=== PATIENT | male | born 1970 | race Caucasian/White ===

== ENCOUNTER 2016-11-29 06:50 | Day surgery (SDC) | payer OTHER ==
[2016-11-27 10:07] LABS: BASOPHILS 0.5 %; BASOPHILS ABSOLUTE 0.02 10/3/uL (0.0-0.16); EOSINOPHILS 2.8 %; EOSINOPHILS ABSOLUTE 0.12 10/3/uL (0.0-0.53); HEMATOCRIT 42.5 % (40.0-51.0); HEMOGLOBIN 14.7 g/dL (13.6-17.8); LYMPHOCYTES ABSOLUTE 1.51 10/3/uL (0.67-4.30); MEAN CORPUS HGB CONC 34.6 g/dL (32.0-36.0); MEAN CORPUSCULAR HEMOGLOB 28.8 pg (26.0-34.0); MEAN CORPUSCULAR VOLUME 83.3 fL (80-100); MEAN PLATELET VOLUME 12.9 fL (9.2-13.0); MONOCYTES 5.3 %; MONOCYTES ABSOLUTE 0.23 10/3/uL (0.21-1.20); NEUTROPHILS 56.4 %; NEUTROPHILS ABSOLUTE 2.44 10/3/uL (2.02-8.40); PLATELET COUNT 209 10/3/uL (150-400); RBC DISTRIBUTION WIDTH 12.5 % (12.0-16.0); WHITE BLOOD CELLS 4.3 10/3/uL (4.5-10.5)
[2016-11-27 10:11] LABS: MANUAL DIFF NO %
[2016-11-27 10:26] LABS: A/G RATIO 1.5 (0.7-1.9); ALBUMIN 4.6 G/DL (3.5-5.0); ALKALINE PHOSPHATASE 71 U/L (45-117); BUN (BLOOD UREA NITROGEN) 22 MG/DL (6-23); CHLORIDE, SERUM 106 MMOL/L (96-112); CO2 (CARBON DIOXIDE) 26 MMOL/L (24-34); CREATININE 0.84 MG/DL (0.70-1.30); GFR AFRICAN AMERICAN 121 ML/MIN (>=60); GFR NON AFRICAN AMERICAN 104 ML/MIN (>=60); GLOBULIN 3.1 G/DL (2.5-4.1); GLUCOSE, SERUM 95 MG/DL (60-99); SGOT(AST) 13 U/L (5-40); SGPT(ALT) 28 U/L (5-65); SODIUM, SERUM 141 MMOL/L (135-148); TOTAL BILIRUBIN 0.6 MG/DL (0-1.2); TOTAL PROTEIN 7.7 G/DL (6.0-8.5)
--- NOTE | ~2016-11-29 | PREOPHP ---
PreOp History and Physical [id number] [place]. [address] NAME: ZAY ROMERO : 68 STATUS : PRE [facility] PAT#: [id number] AGE: 46 ADM/REG DATE : MR#: [id number] REPORT SERV DATE: 11/28/16 DICTATED BY: GENESIS JIMENEZ III DATE: 11/21/16 REPORT STATUS : Draft TRANSCRIBED BY: JERRY DATE: 11/21/16 HISTORY OF PRESENT ILLNESS: This 46-year-old male comes to the operating room for repair of a symptomatic umbilical hernia. The patient noticed a "pop" in his abdomen at the navel area about two weeks ago. This was during a workout. The patient has umbilical hernia, which is symptomatic in terms of local pain and discomfort. The patient comes to the operating room now for an open repair of umbilical hernia. The patient had no nausea, vomiting, or obstructive symptoms. PAST MEDICAL HISTORY: Unremarkable. MEDICATIONS: None regularly. FAMILY HISTORY: Unremarkable. SOCIAL HISTORY: No history of tobacco use. The patient does have occasional history of alcohol use. ALLERGIES: NONE. REVIEW OF SYSTEMS: The patient's 14-point review of systems is otherwise unremarkable. PHYSICAL EXAMINATION: GENERAL: This is an obese male, in no acute distress. He is alert and oriented x3. VITAL SIGNS: Blood pressure 127/74, pulse 58, temperature 97.7. HEENT: Unremarkable. Cranial nerves II through XII were normal. LUNGS: Clear. CARDIAC: Normal. ABDOMEN: Soft and nontender. The patient has a small umbilical hernia which is reducible. EXTREMITIES: Normal. ASSESSMENT: A 46-year-old male with symptomatic umbilical hernia. PLAN: The patient comes to the operating room now for open repair of this umbilical hernia. This procedure, the risks, benefits, and alternatives, including but not limited to the risk for bleeding, infection, enterotomy, injury to any abdominal structure, postop small bowel obstruction, ileus, seroma formation, hematoma formation, recurrence of the hernia, and unforeseen complications including deep venous thrombosis, pulmonary embolus, myocardial infarction, stroke, pneumonia, and , have been explained to the patient prior to surgery. His questions have been answered. He understands the risks and agrees to surgery as planned. MEGAN/JERRY Genesis Steen History and Physical [id number] [facility] [place]. [address] NAME: ZAY ROMERO : 68 STATUS : PRE [facility] PAT#: [id number] AGE: 46 ADM/REG DATE : MR#: [id number] REPORT SERV DATE: 11/28/16 DICTATED BY: GENESIS JIMENEZ III DATE: 11/21/16 REPORT STATUS : Draft TRANSCRIBED BY: MODL DATE: 11/21/16 Zeke Jimenez III, M.D. / [id number]
--- NOTE | ~2016-11-29 | OP ---
Record Of Operation [facility] [address] [place]. [address] NAME: ZAY ROMERO : 68 STATUS : REG [facility] [place] PAT#: [id number] AGE: 46 ADM/REG DATE : 11/29/16 MR#: [id number] REPORT SERV DATE: 11/29/16 DICTATED BY: GENESIS JIMENEZ III DATE: 11/29/16 REPORT STATUS : Draft TRANSCRIBED BY: MODL DATE: 11/29/16 DATE OF PROCEDURE: 11/29/2016 PREOPERATIVE DIAGNOSIS: Symptomatic umbilical hernia. POSTOPERATIVE DIAGNOSIS: Symptomatic umbilical hernia. PROCEDURE: Umbilical hernia repair. SURGEON: Genesis Jimenez M.D. ANESTHESIA: General with intubation. COMPLICATIONS: None. ESTIMATED BLOOD LOSS: Less than 5 mL. SPECIMENS: None. DRAINS: None. LAP AND SPONGE COUNT: Correct x3. BRIEF HISTORY: This 46-year-old male presented with a symptomatic umbilical hernia. It was felt that open umbilical hernia repair was indicated. This procedure, the risks, benefits, and alternatives, including not limited to the risk for bleeding, infection, enterotomy, injury to the abdominal structure, postop small bowel obstruction, ileus, incisional hernia recurrence, seroma formation, hematoma formation, and unforeseen complications including deep venous thrombosis, pulmonary embolus, myocardial infarction, stroke, pneumonia, and , were fully explained to the patient prior to surgery. His questions were answered. He understood the risks and agreed to the surgery as planned. DESCRIPTION OF PROCEDURE: After being appropriately identified and after discussing the risks of surgery with him again in the preoperative area, and after identifying the hernia with his help in the preoperative area, the patient was taken to the operating room and placed in the supine position on the operating room table. General anesthesia was administered and he was intubated without difficulty. The abdomen was prepped and draped sterilely in the usual fashion. After an appropriate "time-out" per JCAHO standards, a small curvilinear incision was made along the inferior border of the navel. Incision was continued through the subcutaneous tissue. Hemostasis was controlled with electrocautery. Using sharp dissection, the navel was raised superiorly. We continued our dissection down to the fascial defect. A small 1 cm fascial defect was identified. Using sharp dissection, the skin and subcutaneous tissue around the defect anteriorly was fully mobilized. The fascia posteriorly was inspected to be certain that there was no bowel beneath the fascia posteriorly. Hemostasis was assured. The fascial edges of the defect were then reapproximated with interrupted 0 Prolene sutures. The fascia came together nicely with no Record Of Operation [address] [place]. [address] NAME: ZAY ROMERO : 68 STATUS : REG [facility] [place] PAT#: [id number] AGE: 46 ADM/REG DATE : 11/29/16 MR#: [id number] REPORT SERV DATE: 11/29/16 DICTATED BY: GENESIS JIMENEZ III DATE: 11/29/16 REPORT STATUS : Draft TRANSCRIBED BY: MODL DATE: 11/29/16 tension. Hemostasis was assured. The subcutaneous tissue was closed with a running 3-0 chromic suture. The skin was closed with running subcuticular 4-0 Monocryl stitch. The incision was injected with 0.5% Marcaine. Dressings were applied. Anesthesia was reversed. The patient was taken to the recovery room in stable condition. He tolerated the procedure well. His family was informed of the results of surgery. The patient will be discharged when stable and comfortable. His family was advised that he should keep his wound clean and dry for 48 hours, that he should not drive for three to four days after surgery or while using narcotics and that he should resume his usual medications. They were advised that he should not perform any heavy lifting for 5 to 6 weeks. He was asked to return in two weeks for followup or sooner if any fever, chills, nausea, vomiting, wound drainage, or other problems prior to that time. He was given a prescription for Percocet 7.5 one t.i.d., #12, as needed for pain, which he was advised not to use while driving. RHTracie/JERRY Genesis Jimenez III, M.D. / [id number] CC: Boby Angel III
[~2016-11-29 06:50] MED LIST: MULTI-VIT HP PO
== END 2016-11-29 13:39 | disposition home or self-care (01) ==
LOC: SDC 06:50
PROVIDERS: Surgery
PROC: 0WQF0ZZ Repair Abdominal Wall, Open Approach (ICD-10-PCS; principal; 2016-11-29 09:00)
DX: K42.9 Umbilical hernia without obstruction or gangrene (principal); Z88.8 Allergy status to other drugs, medicaments and biological substances; Z79.899 Other long term (current) drug therapy; Z90.89 Acquired absence of other organs; Z98.890 Other specified postprocedural states
CPT/HCPCS: 71020; 80053; 85025; 87641; 93005; A9270-GY; J0690; J1170; J2250; J2405; J2550; J2710; J3010